=== PATIENT | male | born 1940 | race Caucasian/White ===

== ENCOUNTER 2018-08-12 07:21 | Day surgery (SDC) | payer MEDICARE ==
[2018-08-12] MEDS ORDERED: Lactated Ringers 1,000 ML IV SCH (08:00)
[2018-08-12] MEDS ORDERED: fentaNYL 100 MCG/2 ML SDV ONE (08:06)
[2018-08-12] MEDS ORDERED: Propofol 200 MG/20 ML SDV ONE (08:06)
[2018-08-12 10:17] VITALS: BP 99/71
--- NOTE | 2018-08-12 11:33 | OR ---
DATE OF PROCEDURE: 08/12/2018 PREOPERATIVE DIAGNOSES: 1. Strong family history of colon cancer in mother. 2. Personal history of polyps. POSTOPERATIVE DIAGNOSES: 1. Small distal rectal polyp. 2. Diverticulosis. 3. Strong family history of colon cancer in mother. 4. Personal history of polyps. PROCEDURE: Colonoscopy to the cecum with biopsy resection of distal rectal polyp. SURGEON: Jones Ness MD ANESTHESIA: IV anesthesia with monitored anesthesia care. INDICATION: This 78-year-old white male is referred for a colonoscopy. He has a personal history of polyps and a strong family history of colon cancer in that his mother had colon cancer. He says his last colonoscopic exam was done 5 to 6 years ago. I counseled him for the procedure, including risks and alternatives, and he gave his informed consent to proceed. DESCRIPTION OF PROCEDURE: The patient was placed in the left lateral decubitus position. IV anesthesia was administered by the Anesthesia Service. Time-out was held. A rectal exam was performed, which was unremarkable. The flexible video Olympus colonoscope was introduced through his anus, up his rectum, and out his colon, all the way to the cecum. En route, we saw several left-sided diverticula. There was no bleeding or inflammation associated with any of them. Once the cecum was reached, the scope was slowly withdrawn, examining the mucosa throughout. No additional mucosal abnormalities were noted. The scope was retroflexed in the rectum with the distal rectum showing a small polyp. This was removed with the biopsy forceps. The scope was straightened and removed. He tolerated the procedure well. Jones Ness MD /[id number]
== END 2018-08-12 10:28 | disposition home or self-care (01) ==
LOC: JP.SDS 07:21
PROVIDERS: ATTEND Surgery
DX: Z12.11 Encounter for screening for malignant neoplasm of colon (principal); K62.1 Rectal polyp; K57.30 Diverticulosis of large intestine without perforation or abscess without bleeding; I12.9 Hypertensive chronic kidney disease with stage 1 through stage 4 chronic kidney disease, or unspecified chronic kidney disease; N18.9 Chronic kidney disease, unspecified; J44.9 Chronic obstructive pulmonary disease, unspecified; Z86.010 Personal history of colon polyps; Z87.891 Personal history of nicotine dependence; Z80.0 Family history of malignant neoplasm of digestive organs; Z88.0 Allergy status to penicillin; Z88.6 Allergy status to analgesic agent
CPT/HCPCS: 45380; J2704; J3010; J7120

== ENCOUNTER 2020-05-02 20:28 | Emergency (ER) | payer MEDICARE ==
[2020-05-02 20:42] VITALS: BP 133/91; PULSE 84
--- NOTE | 2020-05-02 21:00 | EDM.PDOC ---
ED HPI GENERAL MEDICAL PROBLEM - General Chief Complaint: ENT Problem Stated Complaint: UNABLE TO SWALLOW Time Seen by Provider: 05/02/20 20:51 Source of Information: Reports: Patient, Family, RN Notes Reviewed History Limitations: Reports: No Limitations - History of Present Illness INITIAL COMMENTS - FREE TEXT/NARRATIVE: 79-year-old gentleman presents emergency department a complaint of difficulty swallowing, he states his had trouble for the last couple weeks but tonight when he was eating dinner he felt like the food was stuck it is now passed he is able to swallow secretions and he is able to drink water does have a known history of hiatal hernia - Related Data Allergies Allergy/AdvReac Type Severity Reaction Status Date / Time amoxicillin [Amoxicillin] Allergy Rash Verified 08/12/18 07:52 aspirin Allergy Other Verified 08/12/18 07:52 ibuprofen Allergy Other Verified 08/12/18 07:52 Penicillins Allergy Rash Verified 08/12/18 07:52 Home Meds: Home Meds Acetaminophen [Tylenol] 500 mg PO Q4H PRN 04/20/17 [History] Azelastine [Astelin Nasal Soln] 2 inhalation HEAVEN BID 04/20/17 [History] Fluticasone Propionate [Flonase] 2 spray NS DAILY 04/20/17 [History] Triamterene/Hydrochlorothiazid [Triamterene-HCTZ 37.5-25 MG] 1 each PO DAILY 04/20/17 [History] Fluticasone Propion/Salmeterol [Advair Hfa 230-21 Mcg Inhaler] 2 puff IH BID 08/08/18 [History] Cetirizine HCl [All Day Allergy] 10 mg PO DAILY 08/12/18 [History] Finasteride 5 mg PO DAILY 05/02/20 [History] Past Medical History HEENT History: Reports: Sinusitis Cardiovascular History: Reports: Hypertension Respiratory History: Reports: COPD, Sleep Apnea Gastrointestinal History: Reports: Colon Polyp Genitourinary History: Reports: Prostate Disorder Musculoskeletal History: Reports: Arthritis, Fracture Other Musculoskeletal History: Hx of clavicle fracture Oncologic (Cancer) History: Reports: Colon, Lung - Infectious Disease History Infectious Disease History: Reports: Chicken Pox, Measles, Mumps - Past Surgical History HEENT Surgical History: Reports: Naso-Sinus Surgery Cardiovascular Surgical History: Reports: None Respiratory Surgical History: Reports: None GI Surgical History: Reports: Colonoscopy, Hernia, Inguinal Male Surgical History: Reports: None Musculoskeletal Surgical History: Reports: None Social & Family History - Family History Cardiac: Reports: Hypertension Neurological: Reports: CVA Oncologic: Reports: Colon, Lung - Tobacco Use Tobacco Use Status *Q: Former Tobacco User Used Tobacco, but Quit: Yes Month/Year Tobacco Last Used: 5 years ago - Caffeine Use Caffeine Use: Reports: Coffee, Soda, Tea - Recreational Drug Use Recreational Drug Use: No ED ROS GENERAL - Review of Systems Review Of Systems: See Below Constitutional: Reports: No Symptoms GI/Abdominal: Reports: Difficulty Swallowing ED EXAM, GI/ABD - Physical Exam Exam: See Below Exam Limited By: No Limitations General Appearance: Alert, WD/WN, No Apparent Distress Throat/Mouth: Normal Inspection, Normal Lips, Normal Teeth, Normal Gums, Normal Oropharynx, Normal Voice, No Airway Compromise Respiratory/Chest: No Respiratory Distress GI/Abdominal Exam: Soft, Non-Tender Course - Vital Signs Last Recorded V/S: Last Vital Signs Temp 94.3 F L 05/02/20 20:42 Pulse 84 05/02/20 20:42 Resp 16 05/02/20 20:42 BP 133/91 H 05/02/20 20:42 Pulse Ox 94 L 05/02/20 20:42 - Orders/Labs/Meds Orders: Active Orders 24 hr Category Date Time Status CORONAVIRUS COVID-19, ANNE-MARIE Stat Lab 05/02/20 20:55 Ordered Departure - Departure Time of Disposition: 20:59 Disposition: Home, Self-Care 01 Condition: Fair Clinical Impression: Dysphagia Qualifiers: Dysphagia type: unspecified Qualified Code(s): R13.10 - Dysphagia, unspecified - Discharge Information Instructions: Upper Endoscopy, Adult Referrals: Jorge L Bone MD [Primary Care Provider] - Additional Instructions: Please report to the outpatient surgery center at your appointment time in the morning call return to the emergency department worsening of symptoms recommend not eating anything until after your EGD take your morning pills with small sips of water Sepsis Event Note (ED) - Evaluation Sepsis Screening Result: No Definite Risk - Focused Exam Vital Signs: Vital Signs Temp Pulse Resp BP Pulse Ox 05/02/20 20:42 94.3 F L 84 16 133/91 H 94 L - My Orders Last 24 Hours: My Active Orders 05/02/20 20:55 CORONAVIRUS COVID-19, ANNE-MARIE Stat - Assessment/Plan Last 24 Hours: My Active Orders 05/02/20 20:55 CORONAVIRUS COVID-19, ANNE-MARIE Stat Plan: Assessment Acuity = acute Site and laterality = dysphagia Etiology = unknown Manifestations = none Location of injury = Home Lab values = none Plan Call discussed case Dr. Ferreira at 2049 recommended EGD with dilation he will be set up for that first case in the morning scheduling done by outpatient surgery This note was dictated using [employer] voice recognition software please call with any questions on syntax or grammar.
== END 2020-05-02 22:00 | disposition home or self-care (01) ==
LOC: JP.ED 20:28
DX: R13.10 Dysphagia, unspecified (principal); I10 Essential (primary) hypertension; J44.9 Chronic obstructive pulmonary disease, unspecified; Z88.0 Allergy status to penicillin; Z88.6 Allergy status to analgesic agent; Z88.1 Allergy status to other antibiotic agents; Z87.891 Personal history of nicotine dependence; Z79.899 Other long term (current) drug therapy; Z20.828 Contact with and (suspected) exposure to other viral communicable diseases
CPT/HCPCS: 99284; U0002

== ENCOUNTER 2020-05-03 06:05 | Day surgery (SDC) | payer MEDICARE ==
[2020-05-03] MEDS ORDERED: Dextrose 5%-Lactated Ringers 1,000 ML IV SCH (07:00)
[2020-05-03] MEDS ORDERED: Propofol 200 MG/20 ML SDV ONE (07:11)
[2020-05-03] MEDS ORDERED: Pantoprazole 40 MG Vial IVPUSH ONE (07:35)
[2020-05-03 08:28] VITALS: BP 116/66; PULSE 62
--- NOTE | 2020-05-04 09:29 | OR ---
DATE OF PROCEDURE: 05/03/2020 SURGEON: Mando Ferreira MD PREOPERATIVE DIAGNOSIS: Dysphagia referable to distal esophagus. POSTOPERATIVE DIAGNOSES: 1. 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 2. Mild antral gastritis/duodenitis. OPERATIVE PROCEDURES: Esophagogastroduodenoscopy with: 1. Biopsies of esophagogastric junction for histologic evaluation. 2. Biopsies of antrum for CLOtest (29665). 3. Dilation of esophageal stricture (41483). ANESTHESIA: IV sedation. INDICATIONS FOR PROCEDURE: This 79-year-old presents with roughly a 3-month history of some increasing dysphagia referable to distal esophagus. Does not give overt history of reflux symptoms and presently is not on any antisecretory medication. He was seen in the emergency room last evening with initial esophageal obstruction quite a bit in the way of substernal discomfort. This subsided and he was discharged for a planned upper endoscopy with biopsies and/or dilation as indicated. Potential risks including bleeding and perforation were discussed, and the patient wishes to proceed. DETAILS OF PROCEDURE: The patient was taken to the operating room, placed in a left lateral decubitus position. IV sedation was administered, after which the upper GI endoscope was passed orally through the length of the esophagus and through the area of esophageal stricturing, from there into the stomach with retroflexion view revealing a large hiatal hernia, and thereafter through the pyloric channel into the proximal duodenum. Findings included normal hypopharynx, larynx, upper esophageal sphincter, esophageal body. At the EG junction, the patient was noted to have a quite large hiatal hernia measuring around 6 cm. This was associated with marked redness and edema of the area at and just above the esophagogastric junction with some fibrinous exudate covering those areas associated with stricture which just admitted a 1 cm gastroscope, i.e. it was in the range of 1.2 cm in diameter. Within the stomach, there was some patchy redness in the antrum and proximal duodenum, otherwise these areas were unremarkable. At this point, biopsies were obtained from the antrum and sent for CLOtest for H pylori. Multiple biopsies were then obtained from the esophagogastric junction and sent for histologic evaluation. Minimal bleeding from the biopsy sites was seen. At this point, a guidewire was passed into the stomach and the gastroscope was then removed as the guidewire was left in place. Using fluoroscopic surveillance, the esophageal stricture was then dilated with a single passage of 40-Polish Savary dilator. This was held in position for 1 minute, after which the dilator and wire were removed and the procedure was then concluded. The patient was taken to the recovery room in satisfactory condition. The patient was given Protonix IV 40 mg in the recovery room and begins on a regimen of Protonix 40 mg daily, #90, refill x1 year, and follow up with Dr. Bone would be in roughly 1 month. Should the patient have recurrent symptoms while on proton pump inhibitor therapy, consideration for antireflux procedure and/or repeat dilation would be warranted. Mando Ferreira MD /[id number]
== END 2020-05-03 08:51 | disposition home or self-care (01) ==
LOC: JP.SDS 06:05
PROVIDERS: ATTEND Surgery
DX: K22.2 Esophageal obstruction (principal); K22.10 Ulcer of esophagus without bleeding; K44.9 Diaphragmatic hernia without obstruction or gangrene; K21.9 Gastro-esophageal reflux disease without esophagitis; I10 Essential (primary) hypertension; G47.33 Obstructive sleep apnea (adult) (pediatric); J44.9 Chronic obstructive pulmonary disease, unspecified
CPT/HCPCS: 87081; 88305; 88312; C9113; J2704; J7121